=== PATIENT | male | born 1975 ===

== ENCOUNTER 2022-03-28 09:45 | Outpatient (REF) | payer BC, SELFPAY ==
[2022-03-29 15:18] LABS: COVID-19 RT-PCR UVMMC Result Negative (Negative)
== END 2022-03-28 09:46 | disposition home or self-care (01) ==
LOC: LBN 09:45
PROVIDERS: Visit Provider Nurse Practitioner Family
DX: Z20.822 Contact with and (suspected) exposure to COVID-19 (principal)
CPT/HCPCS: U0003